=== PATIENT | female | born 1990 | race Caucasian/White ===

== ENCOUNTER 2017-01-21 19:51 | Emergency (ER) | payer OTHER ==
[2017-01-22 00:12] VITALS: BP 120/68
== END 2017-01-22 00:12 | disposition home or self-care (01) ==
LOC: ED 19:51
DX: N39.0 Urinary tract infection, site not specified (principal); R51 Headache

== ENCOUNTER 2017-02-10 12:43 | Inpatient (IN) | payer OTHER ==
[~2017-02-10] VITALS: Ht 167.6 cm; Wt 69.4 kg
[2017-02-10 15:12] LABS: UA SPECIFIC GRAVITY <=1.005 (1.005-1.035); microscopic required? YES; urine erythrocyte 2+ (NEGATIVE)
[2017-02-10 15:16] LABS: PLATELET COUNT 269 x10^3mcL (130-400)
[2017-02-10 15:18] LABS: CALCIUM 9.2 mg/dL (8.5-10.1); CARBON DIOXIDE 26.2 mmol/L (21-32); CHLORIDE SERUM 104 mmol/L (98-107); GFR1 > 60 mL/min; GLUCOSE SERUM 98 mg/dL (74-106); POTASSIUM SERUM 3.6 mmol/L (3.5-5.1); SODIUM SERUM 140 mmol/L (136-145)
[2017-02-10 16:25] LABS: BAND NEUTROPHIL 20 % (0-10); MONOCYTE 7 % (0-7); SEGMENTED NEUTROPHILS 64 % (37-75)
[2017-02-10 16:26] LABS: PLATELET MORPHOLOGY LARGE PLATELET SEEN; rbc morphology (normal/abnorm) ABNORMAL (NORMAL)
[2017-02-10 19:08] LABS: ALBUMIN 2.6 g/dL (3.4-5.0); BILIRUBIN TOTAL 0.5 mg/dL (0.20-1.00); TOTAL PROTEIN, SERUM 7.9 g/dL (6.4-8.2)
[2017-02-10 19:16] LABS: BILIRUBIN DIRECT 0.37 mg/dL (0.0-0.2)
[2017-02-10 19:48] LABS: MAGNESIUM 2.2 mg/dL (1.8-2.4); PHOSPHOROUS 2.9 mg/dL (2.5-4.9)
[2017-02-10 19:51] LABS: CHOLESTEROL/HDL RATIO 7.5
[2017-02-10 19:56] LABS: T3 TOTAL 0.69 ng/mL
[2017-02-10 20:00] LABS: FREE THYROXINE INDEX 4.2 ug/dL (1.4-4.5); T4(THYROXINE) 10.8 ug/dL (4.7-13.3)
[2017-02-10 20:11] LABS: AMPHETAMINE QUAL UR NONE DETECTED (NEG <=1000)
[2017-02-10 20:31] LABS: FREE T4 1.71 ng/dL (0.76-1.46)
[2017-02-10 21:24] VITALS: BP 121/60
[2017-02-11] VITALS (7 sets, daily range): BP systolic 96–131; BP diastolic 57–77
[2017-02-11 06:44] LABS: CALCIUM 8.3 mg/dL (8.5-10.1); CARBON DIOXIDE 24.1 mmol/L (21-32); CHLORIDE SERUM 109 mmol/L (98-107); GFR1 > 60 mL/min; GLUCOSE SERUM 84 mg/dL (74-106); POTASSIUM SERUM 3.7 mmol/L (3.5-5.1); SODIUM SERUM 141 mmol/L (136-145)
[2017-02-11 07:26] LABS: PLATELET COUNT 230 x10^3mcL (130-400)
[2017-02-11 07:39] LABS: RED CELL DISTRIBUTION WIDTH 15.9 % (11.5-14.5)
[2017-02-11 11:42] LABS: BAND NEUTROPHIL 15 % (0-10); MONOCYTE 5 % (0-7); SEGMENTED NEUTROPHILS 70 % (37-75); rbc morphology (normal/abnorm) ABNORMAL (NORMAL)
[2017-02-12 05:41] VITALS: BP 105/68
[2017-02-12 06:21] LABS: CALCIUM 8.5 mg/dL (8.5-10.1); CHLORIDE SERUM 108 mmol/L (98-107); CREATININE SERUM 0.8 mg/dL (0.6-1.0); GFR1 > 60 mL/min; GLUCOSE SERUM 81 mg/dL (74-106); PHOSPHOROUS 3.7 mg/dL (2.5-4.9); POTASSIUM SERUM 3.1 mmol/L (3.5-5.1); SODIUM SERUM 140 mmol/L (136-145)
[2017-02-12 06:59] LABS: PLATELET COUNT 257 x10^3mcL (130-400)
[2017-02-12 09:05] VITALS: BP 99/63
[2017-02-12 09:28] LABS: BAND NEUTROPHIL 4 % (0-10); MONOCYTE 10 % (0-7); SEGMENTED NEUTROPHILS 74 % (37-75)
[2017-02-12 09:30] LABS: PLATELET MORPHOLOGY FEW LARGE PLATELETS; rbc morphology (normal/abnorm) ABNORMAL (NORMAL)
[2017-02-12 13:00] VITALS: BP 106/66
[2017-02-12 17:02] VITALS: BP 110/70
[2017-02-12 21:19] VITALS: BP 107/66
[2017-02-13 05:35] VITALS: BP 96/63
[2017-02-13 05:54] LABS: BASOPHIL % 0.1 % (0-2); PLATELET COUNT 274 x10^3mcL (130-400)
[2017-02-13 06:37] LABS: CALCIUM 8.1 mg/dL (8.5-10.1); CARBON DIOXIDE 25.5 mmol/L (21-32); CHLORIDE SERUM 105 mmol/L (98-107); CREATININE SERUM 0.7 mg/dL (0.6-1.0); GFR1 > 60 mL/min; GLUCOSE SERUM 89 mg/dL (74-106); MAGNESIUM 1.8 mg/dL (1.8-2.4); PHOSPHOROUS 4.6 mg/dL (2.5-4.9); POTASSIUM SERUM 3.2 mmol/L (3.5-5.1); SODIUM SERUM 141 mmol/L (136-145)
[2017-02-13 08:53] VITALS: BP 113/77
[2017-02-13] MEDS ORDERED: CIPRO500 MG PO (10:43)
[2017-02-13] MEDS ORDERED: BD LACTINEX1.4 MG PO (10:44)
[2017-02-13] MEDS ORDERED: APAP500 MG PO (10:50)
[2017-02-13 13:32] VITALS: BP 113/77
[2017-02-13 14:06] VITALS: BP 118/78
== END 2017-02-13 14:00 | disposition home or self-care (01) | DRG 871 ==
LOC: ED 12:43 → DU 18:28
PROVIDERS: Emergency Medicine Emergency Medical Services; Family Medicine; ADMIT Family Medicine
DX: A41.51 Sepsis due to Escherichia coli [E. coli] (principal); E43 Unspecified severe protein-calorie malnutrition; N17.0 Acute kidney failure with tubular necrosis; N12 Tubulo-interstitial nephritis, not specified as acute or chronic; R73.03 Prediabetes; R74.0 Nonspecific elevation of levels of transaminase and lactic acid dehydrogenase [LDH]; D64.9 Anemia, unspecified; E86.0 Dehydration; R65.20 Severe sepsis without septic shock; Z68.24 Body mass index [BMI] 24.0-24.9, adult
CPT/HCPCS: 82962; 83880; 84439; J1885; J1956; J2270; J2405; J2543; J2550; J3370; J7030; Q0092; Q9967